=== PATIENT | male | born 1990 | race Two or more races ===

== ENCOUNTER 2025-06-27 12:39 | Emergency (ER) | payer MEDICAID, SELFPAY ==
[2025-06-27 12:41] VITALS: BMI 24.2
[2025-06-27 12:59] VITALS: BP 148/90; PULSE 99; RESP 18; TEMP 36.8; O2SAT 98; BMI 20.9
[2025-06-27] MEDS: LIDOCAINE 1% W/EPI 1:100K 20 ML VIAL INFL (13:25)
--- NOTE | 2025-06-27 13:28 | PD.EDWOUND ---
ED Wound/Laceration-RME/HPI General Chief Complaint: Wound/Laceration Stated Complaint: LAC TO CHIN Time Seen by Provider: 06/27/25 12:44 Arrival date/time: 06/27/25 12:39 34-year-old male patient came in for evaluation regarding chin laceration. Patient sustained a laceration of the chin after a fall last night. Patient denies any head injury denies any neck pain patient is ambulatory. Tetanus vaccination is unknown Related Data Previous Rx's ?Medication ?Instructions ?Recorded sulfamethoxazole 800 1 tab PO BID 7 days #14 tabs 06/27/25 mg-trimethoprim 160 mg tablet (Bactrim DS) Allergies Allergy/AdvReac Type Severity Reaction Status Date / Time Penicillins Allergy Verified 06/27/25 12:40 Review of Systems Review of Systems Narrative Review of Systems: Review of system reviewed and within normal limits except mentioned in HPI ED Exam Narrative Physical exam: VITAL SIGNS: Reviewed. GENERAL APPEARANCE: Alert and interactive, follows commands, no acute distress, HEAD AND FACE: +1.5 cm laceration, chin, gaping, with minimal bleeding ENT: PERRL, pink conjunctivitis, eyelid no trauma, Mucous membrane moist. No loosening of the teeth, patient is able to open the mouth fully without any pain NECK: Supple, nontender, no nuchal rigidity. CHEST: No tenderness, no crepitus, no paradoxical movement, no retractions. LUNGS: Clear, well ventilated, symmetric, no rales, no wheezing, no ronchi, no stridor, good breath sounds bilaterally. HEART: Regular rate, regular rhythm, no murmur, no gallops. ABDOMEN: Soft, positive bowel sounds, nondistended, no guarding, nontender, no rebound, no masses, RECTAL: Deferred. GENITAL: Deferred. NEUROLOGICAL: Gross motor function intact sensory function intact, Appropriate for age. MUSCULOSKELETAL: low back nontender, full range of motion. EXTREMITIES: Nontender, full range of motion. SKIN: Color pink, dry, no rash, no lacerations, no abrasions, no contusions. LYMPHATICS: Deferred. Course Quality Measures none Orders Category Date Time Status Set Up Suture Tray STAT Care 06/27/25 12:57 Active Wound Care NOW Care 06/27/25 12:57 Active Lidocaine 1% W/Epi 1:100K 20Ml [Xylocaine 1% w/Epi 1: Med 06/27/25 12:57 Discontinued 100K 20 ml] 20 ml INFL X1 ONE TET,DIP/PERT AC (Adult)-Tdap [Boostrix Adult (Tdap) Med 06/27/25 12:57 Discontinued Vacc] 0.5 ml IMI .ONCE ONE Vital Signs Vital signs: Vital Signs Temperature 98.2 F 06/27/25 12:59 Pulse Rate 99 06/27/25 12:59 Respiratory Rate 18 06/27/25 12:59 Blood Pressure 148/90 H 06/27/25 12:59 Pulse Oximetry (%) 98 06/27/25 12:59 Oxygen Delivery Method Room Air 06/27/25 12:59 PROCEDURES: Laceration Laceration 1: Site: other (Chin) Size (cm): 1.5 Description: linear Depth: simple, single layer Local Anesthetic: lidocaine 1% and with epi Amount of anesthesia used (mL): 3 Pre-repair: wound explored, irrigated extensively and deep structures intact Skin layer closed with: nylon Suture size (cm): 5-0 Number of sutures: 4 Technique: simple, interrupted Wound / Laceration MDM Narrative MDM Narrative:: 34-year-old male patient came in for evaluation regarding chin laceration. Patient sustained a laceration of the chin after a fall last night. Patient denies any head injury denies any neck pain patient is ambulatory. Tetanus vaccination is unknown Imaging is not needed at this time, repair and suturing was done by me see procedure notes. Patient was given Tdap. Patient tolerated the procedure well Patient data External records reviewed:: None Clinical information provided by:: patient Social determinants that could affect healthcare access:: none Patient has the following chronic illnesses:: None How is presenting disease/condition affected by chronic disease/condition?: no chronic disease Evaluation data The following diagnostics were reviewed and interpreted by me:: other (specify) (None) Lab and/or radiology exams considered but not ordered:: None Interpretation Summary: None Medications / Prescriptions Medications or Prescriptions considered but not ordered:: None Medication administrations:: Medication Administration History Discontinued Medications Diphtheria/Tetanus/Acell Pertussis (Diphth,Pertuss(Acell),Tet Vac 0.5 Ml Syr- Adult) 0.5 ml IMi .ONCE ONE Stop: 06/27/25 12:58 Lidocaine/Epinephrine (Lidocaine 1% W/Epi 1:100k 20 Ml Vial) 20 ml INFL X1 ONE Stop: 06/27/25 12:58 Tdap Consultations Consultation(s) initiated? (list below): No Diagnosis Wound Differential Diagnosis: laceration, abrasion and avulsion of skin Most likely diagnosis given after review of the tests above:: Chin laceration Admission Indicated Admission indicated?: not indicated Admission Request Was there a request for admission?: No Disposition Plan Disposition Plan: Discharge Discharge Attestation Discharge Attestation: The patient was given an opportunity to ask questions and understood the discharge instructions. Discharge instructions specifically effects, indications for sooner follow up or return to the emergency department, and the expected course of current diagnosis. Patient condition: Stable Discharge Plan Plan Patient Disposition: HOME (Self Care) Discharge Disposition comment: Stable Prescriptions/Referrals Prescriptions/Med Rec: New sulfamethoxazole-trimethoprim [Bactrim DS] 800-160 mg tablet 1 tab PO BID 7 Days Qty: 14 0RF Problem List Clinical Impression: Chin laceration Patient/Caregiver Discharge Instructions Discharge Activity: activity as tolerated Education Materials: ED Laceration, Chin, Suture or Tape Additional Instructions: Thank you for the opportunity for serving you today. You are stable for discharged . You are advised to: Follow-up with your PCP in 1 to 2 days Return to ED for worsening of symptoms Increase oral fluids Take medication as prescribed For removal of sutures in 7 days Daily dressing with triple antibiotic as needed Print Language: [place] Helen[place] Stand Alone Forms: Christine Award Info., Patient Portal Info Letter ELDON/ANGELICA Supervising Physician ELDON/ANGELICA Supervising Physician: MD Kam
== END 2025-06-27 14:12 | disposition home or self-care (01) ==
LOC: SERX 13:50
PROVIDERS: Emergency Provider Emergency Medicine; PCP Family Medicine
DX: S01.81XA Laceration without foreign body of other part of head, initial encounter (principal); W19.XXXA Unspecified fall, initial encounter
CPT/HCPCS: 12013; 99281; J3490

== ENCOUNTER 2025-07-05 08:47 | Emergency (ER) | payer MEDICAID, SELFPAY ==
[2025-07-05 08:47] VITALS: BMI 21.7
[2025-07-05 08:54] VITALS: BP 158/104; PULSE 91; RESP 18; TEMP 36.5; O2SAT 97
--- NOTE | 2025-07-05 09:01 | PD.EDWOUND ---
ED Wound/Laceration-RME/HPI General Chief Complaint: Wound Recheck / Suture Removal Stated Complaint: stitches removed Time Seen by Provider: 07/05/25 08:49 Arrival date/time: 07/05/25 08:47 34-year-old male presents to the Emergency Department today requesting suture removal patient has 4 sutures in his chin patient reports no drainage Limitations: no limitations Related Data Allergies Allergy/AdvReac Type Severity Reaction Status Date / Time Penicillins Allergy Verified 07/05/25 08:49 Review of Systems Review of Systems Systems Reviewed: All systems reviewed, normal except as documented Constitutional Constitutional: Reports system reviewed and no additional complaints, except as documented, Denies fever(s) and Denies headache(s) Eyes Eyes: Reports system reviewed and no additional complaints, except as documented and Denies blurry vision ENT Ears, Nose, Mouth, and Throat: Reports system reviewed and no additional complaints, except as documented, Denies headache(s), Denies nasal congestion and Denies nasal discharge Cardiovascular Cardiovascular: Reports system reviewed and no additional complaints, except as documented, Denies chest pain and Denies dyspnea Respiratory Respiratory: Reports system reviewed and no additional complaints, except as documented, Denies chest congestion, Denies cough and Denies dyspnea Gastrointestinal Gastrointestinal: Reports system reviewed and no additional complaints, except as documented and Denies abdominal pain Integumentary/Breasts Skin/Breast: Reports system reviewed and no additional complaints, except as documented, Denies rash and Reports wounds (Sutures in place chin) Neurologic Neurologic: Reports system reviewed and no additional complaints, except as documented, Reports as per HPI and Denies headache(s) Past Medical History Social History SMOKING STATUS: Current some day smoker ED Exam General Limitations: Present no limitations General appearance: Present alert and in no apparent distress Head Head exam: Present atraumatic, normocephalic and normal inspection Eye Eye exam: Present normal appearance, PERRL and EOMI; Absent conjunctival injection ENT ENT exam: Present normal exam, normal oropharynx and mucous membranes moist Neck Neck exam: Present normal inspection, full ROM and trachea midline Chest Chest inspection: Present normal inspection and symmetric chest wall rise Respiratory Respiratory exam: Present normal lung sounds bilaterally Cardiovascular Cardiovascular exam: Present regular rate, normal rhythm and normal heart sounds Abdominal Exam Abdominal exam: Present soft and normal bowel sounds Extremities Exam Extremities exam: Present normal inspection and full ROM Back Exam Back exam: Present normal inspection and full ROM Neurological Exam Neurological exam: Present alert, oriented X3 and CN II-XII intact Psychiatric Psychiatric exam: Present normal affect and normal mood Skin Skin exam: Present warm, dry and other (Laceration chin) Course Quality Measures none Vital Signs Vital signs: Vital Signs Temperature 97.7 F 07/05/25 08:54 Pulse Rate 91 07/05/25 08:54 Respiratory Rate 18 07/05/25 08:54 Blood Pressure 158/104 H 07/05/25 08:54 Pulse Oximetry (%) 97 07/05/25 08:54 Oxygen Delivery Method Room Air 07/05/25 08:54 O2 saturation 97% r.a wnl Wound / Laceration MDM Narrative MDM Narrative:: 34-year-old male presents to the Emergency Department today requesting suture removal patient has 4 sutures in his chin patient reports no drainage Clinically patient well-appearing does not appear ill or toxic Patient is sutured in place which was removed in their entirety no active bleeding wounds well-approximated no evidence of infection Patient discharged home in no distress to follow-up with primary care doctor in the next 24 to 48 hours and for any worsening symptoms to return to the ER immediately Patient data External records reviewed:: [facility] previous records Clinical information provided by:: patient Social determinants that could affect healthcare access:: none Patient has the following chronic illnesses:: See history How is presenting disease/condition affected by chronic disease/condition?: uneffected by Evaluation data The following diagnostics were reviewed and interpreted by me:: other (specify) Lab and/or radiology exams considered but not ordered:: Considered and not ordered Interpretation Summary: N/A Medications / Prescriptions Medications or Prescriptions considered but not ordered:: Given Medication administrations:: Given Consultations Consultation(s) initiated? (list below): No Diagnosis Wound Differential Diagnosis: laceration and abrasion Most likely diagnosis given after review of the tests above:: Laceration Admission Indicated Admission indicated?: not indicated Admission Request Was there a request for admission?: No Disposition Plan Disposition Plan: Discharge Discharge Attestation Discharge Attestation: The patient and all family members were given an opportunity to ask questions and understood the discharge instructions. Discharge instructions specifically effects, indications for sooner follow up or return to the emergency department, and the expected course of current diagnosis. Patient condition: Stable Discharge Plan Plan Patient Disposition: HOME (Self Care) Discharge Disposition comment: Stable Problem List Clinical Impression: Encounter for removal of sutures Patient/Caregiver Discharge Instructions Additional Instructions: Please follow up with your primary care doctor in the next 24-48hrs for any worsening symptoms return here immediately Print Language: Macedonian Stand Alone Forms: Christine Award Info., Patient Portal Info Letter PA/SUPERVISOR [employer] Supervising Physician PA/SUPERVISOR [employer] Supervising Physician: Dr [email or web address]
== END 2025-07-05 09:08 | disposition home or self-care (01) ==
LOC: SERX 09:17
PROVIDERS: Emergency Provider Nurse Practitioner Primary Care; PCP Family Medicine
DX: S01.81XD Laceration without foreign body of other part of head, subsequent encounter (principal); X58.XXXD Exposure to other specified factors, subsequent encounter
CPT/HCPCS: 99281